=== PATIENT | female | born 1960 | race Two or more races ===

== ENCOUNTER 2025-04-13 11:55 | Inpatient (IN) | payer OTHER ==
[~2025-04-13] VITALS: Ht 167.6 cm; Wt 56.7 kg
[~2025-04-13 11:55] MED LIST: FIORICET 50-301 EACH; PREVACID15 MG; TAGAMET800 MG; TUSSI PRES-B L120 M1 PO; VASOTEC10 MG; ZANTAC300 MG
[2025-04-13] MEDS ORDERED: LOSARTAN POTAS100 MG PO (12:02)
[2025-04-13] MEDS ORDERED: NORVASC2.5 M1 PO (12:03)
--- NOTE | 2025-04-13 12:03 | NUR ---
PTE ALERTA Y ORIENTADA X3 REFIERE VENIR POR ABCESO QUE ESTA COMENZANDO A DESARROLLARSE EN THORNTON NARIS POR EL ORIFICIO PAOLA. SE OBSERVA LABIO SUPERIOR INFLAMADO.
[2025-04-13 13:44] LABS: BASO % 0.2 % (0.1-1.2); EOS # 0.01 (0.04-0.54); EOS % 0.1 % (0.7-7.0); LYMPH # 1.21 (1.18-3.74); LYMPH % 12.6 % (19.3-53.1); MEAN PLATELET VOLUME 9.20 fl (9.4-12.4); MONO # 0.74 (0.24-0.82); MONO % 7.7 % (4.7-12.5); NEUT # 7.56 (1.56-6.13); NEUT % 79.1 % (34.0-71.1); RED CELL DISTRIBUTION WIDTH 19.9 % (11.6-14.4)
[2025-04-13] MEDS ORDERED: CAPTOPRIL 25 MG TABLET PO ONE (13:45)
--- NOTE | 2025-04-13 13:48 | NUR ---
SE EDUCA PACIENTE SOBRE EL TX MEDICO Y ESTA REFIERE ENTENDER. SE FREDA MUESTRAS DE LABORATORIOS. SE QUINTON BP MANUAL Y SE DOCUMENTA DR. LUNA DA ORDEN VERBAL PARA ADMINISTRA 25 MG DE CAPTOPRIL.
[2025-04-13 14:10] LABS: ALT/SGPT 247.0 U/L (12-78); AST/SGOT 370.0 U/L (15-37); BILIRUBIN TOTAL 0.16 mg/dL (0.3-1.2); BUN CREA RATIO 22.0 (7.0-25.0); CREATININE SERUM 0.58 mg/dL (0.55-1.02); GFR 104.01; GLOBULINA 4.9 G/DL (2.4-3.5); GLUCOSE FASTING 103.0 mg/dL (65-100); OSMOLALITY SERUM 274.0 MOSM/KG (275-295)
[2025-04-13] MEDS ORDERED: LABETALOL HCL 20MG/4ML SYRINGE IV ONE ×2 (15:45→22:45)
[2025-04-13] MEDS ORDERED: KETOROLAC TROMETHAMINE 30 MG VIAL IV ONE (16:00)
[2025-04-13] MEDS ORDERED: VANCOMYCIN HCL 1,000 MG VIAL IV ONE (16:00)
[2025-04-13] MEDS ORDERED: PANTOPRAZOLE SODIUM 40 MG/VIAL VIAL IV SCH (18:24)
[2025-04-13] MEDS ORDERED: AMLODIPINE BESYLATE 5 MG TABLET PO SCH (18:25)
[2025-04-13] MEDS ORDERED: CEFTRIAXONE SODIUM 2,000 MG in 0.9 % SODIUM CHLORIDE 100 ML IV SCH (18:26)
[2025-04-13] MEDS ORDERED: ACETAMINOPHEN 500 MG GEL..CAP PO PRN (18:30)
[2025-04-13] MEDS ORDERED: ONDANSETRON HCL 4 MG in 0.9 % SODIUM CHLORIDE 50 ML IV PRN (18:30)
[2025-04-13] MEDS ORDERED: 0.9 % SODIUM CHLORIDE 1,000 ML IV SCH (18:30)
[2025-04-13 21:17] LABS: INR 0.99
[2025-04-13 21:51] LABS: URINE APPEARANCE Clear; URINE BILIRRUBIN Negative (NEGATIVE); URINE BLOOD Trace; URINE COLOR Yellow; URINE GLUCOSE Negative (NEGATIVE); URINE KETONE Trace (NEGATIVE); URINE LEUKOCYTE Negative; URINE NITRATE Negative; URINE PROTEIN 30 (NEGATIVE); URINE UROBILINOGEN 0.2 E.U./dl
[2025-04-13 21:55] LABS: URINE BACTERIA 4.7 uL (0.0-1933); URINE EPITHELIAL CELLS 5.3 uL (0.0-38.8); URINE RBC 38.1 uL (0.0-20.8); URINE WBC 15.3 uL (0.0-23.2)
[2025-04-13 21:58] LABS: URINE CAST 0.87 uL (0.0-1.40)
[2025-04-13 22:28] VITALS: BP 210/90
[2025-04-14] VITALS (8 sets, daily range): BP systolic 177–200; BP diastolic 88–94; O2SAT 96–100
[2025-04-14] MEDS ORDERED: LOSARTAN POTASSIUM 100 MG TABLET PO SCH (09:00)
[2025-04-14] MEDS ORDERED: IRON FUM,PS/FOLIC/BCOMP,C NO.9 1 CAP CAPSULE PO SCH (09:00)
[2025-04-14 12:31] LABS: BASO % 0.2 % (0.1-1.2); EOS # 0.03 (0.04-0.54); EOS % 0.2 % (0.7-7.0); LYMPH # 1.18 (1.18-3.74); LYMPH % 9.7 % (19.3-53.1); MEAN PLATELET VOLUME 9.40 fl (9.4-12.4); MONO # 1.04 (0.24-0.82); MONO % 8.5 % (4.7-12.5); NEUT # 9.86 (1.56-6.13); NEUT % 81.1 % (34.0-71.1); RED CELL DISTRIBUTION WIDTH 23.4 % (11.6-14.4)
[2025-04-14] MEDS ORDERED: MUPIROCIN 15 GM OINT..GM TUBE NASAL SCH (17:00)
[2025-04-14] MEDS ORDERED: LACTOBACILLUS ACIDOPHILUS 1 CAP CAP PO SCH (17:00)
[2025-04-14 19:52] LABS: BUN CREA RATIO 13.0 (7.0-25.0); CREATININE SERUM 0.53 mg/dL (0.55-1.02); GFR 115.41; GLUCOSE FASTING 112.0 mg/dL (65-100); OSMOLALITY SERUM 276.0 MOSM/KG (275-295)
[2025-04-14] MEDS ORDERED: VANCOMYCIN HCL 1,000 MG VIAL IV SCH (21:00)
[2025-04-15] VITALS (9 sets, daily range): BP systolic 148–178; BP diastolic 70–79; O2SAT 96–99
[2025-04-15] MEDS ORDERED: CHLORHEXIDINE GLUCONATE 120 ML BOTTLE TOP SCH (09:00)
[2025-04-15] MEDS ORDERED: PANTOPRAZOLE SODIUM 40 MG TABLET.DR PO SCH ×2 (09:00→21:00)
[2025-04-15] MEDS ORDERED: LINEZOLID IN DEXTROSE 5% 300 ML IV SCH (17:00)
[2025-04-16] VITALS (10 sets, daily range): BP systolic 111–195; BP diastolic 66–87; O2SAT 90–99
[2025-04-16 05:16] LABS: BASO % 0.2 % (0.1-1.2); EOS # 0.11 (0.04-0.54); EOS % 1.0 % (0.7-7.0); LYMPH # 2.88 (1.18-3.74); LYMPH % 25.1 % (19.3-53.1); MEAN PLATELET VOLUME 9.70 fl (9.4-12.4); MONO # 1.23 (0.24-0.82); MONO % 10.7 % (4.7-12.5); NEUT # 7.20 (1.56-6.13); NEUT % 62.7 % (34.0-71.1); RED CELL DISTRIBUTION WIDTH 23.2 % (11.6-14.4)
[2025-04-16 05:23] LABS: ERYTHROCYTE SEDIMENTATION RATE 88 mm/hr (0-30)
[2025-04-16 05:30] LABS: ALT/SGPT 86.0 U/L (12-78); AST/SGOT 31.0 U/L (15-37); BILIRUBIN TOTAL 0.26 mg/dL (0.3-1.2); BUN CREA RATIO 6.0 (7.0-25.0); CREATININE SERUM 0.48 mg/dL (0.55-1.02); GFR 129.4; GLOBULINA 4.2 G/DL (2.4-3.5); GLUCOSE FASTING 92.0 mg/dL (65-100); OSMOLALITY SERUM 276.0 MOSM/KG (275-295)
[2025-04-16] MEDS ORDERED: CANDESARTAN CILEXETIL 32 MG TABLET PO SCH (09:00)
[2025-04-16] MEDS ORDERED: SPIRONOLACTONE 25 MG TABLET PO SCH (09:00)
[2025-04-16] MEDS ORDERED: AMLODIPINE BESYLATE 5 MG TABLET PO SCH (17:00)
[2025-04-16] MEDS ORDERED: DOXAZOSIN MESYLATE 2 MG TABLET PO SCH (21:00)
[2025-04-16] MEDS ORDERED: NIFEDIPINE 90 MG TAB.SA.OSM PO SCH (21:00)
[2025-04-17 02:14] VITALS: BP 140/72; O2SAT 96
[2025-04-17 06:12] VITALS: O2SAT 98
[2025-04-17 06:21] LABS: BASO % 0.3 % (0.1-1.2); EOS # 0.16 (0.04-0.54); EOS % 2.2 % (0.7-7.0); LYMPH # 2.40 (1.18-3.74); LYMPH % 33.2 % (19.3-53.1); MEAN PLATELET VOLUME 10.10 fl (9.4-12.4); MONO # 0.78 (0.24-0.82); MONO % 10.8 % (4.7-12.5); NEUT # 3.85 (1.56-6.13); NEUT % 53.4 % (34.0-71.1); RED CELL DISTRIBUTION WIDTH 23.7 % (11.6-14.4)
[2025-04-17 09:35] VITALS: O2SAT 97
[2025-04-17 09:51] VITALS: BP 188/87; O2SAT 98
[2025-04-17 15:10] LABS: ob NEGATIVE (NEGATIVE)
[2025-04-17 17:10] VITALS: O2SAT 99
[2025-04-17 20:29] VITALS: O2SAT 97
[2025-04-18] VITALS (9 sets, daily range): BP systolic 160–180; BP diastolic 76–85; O2SAT 94–99
[2025-04-18 11:08] LABS: hav igm Negative (Negative); hep b c Negative (Negative); hep b s ag Negative (Negative)
[2025-04-18] MEDS ORDERED: DOXAZOSIN MESYLATE 2 MG TABLET PO SCH (17:00)
[2025-04-18] MEDS ORDERED: CLONAZEPAM 0.5 MG TABLET PO SCH (21:00)
[2025-04-19] VITALS (9 sets, daily range): BP systolic 160–176; BP diastolic 84–89; O2SAT 94–99
[2025-04-20] VITALS (9 sets, daily range): BP systolic 161–188; BP diastolic 80–83; O2SAT 95–98
[2025-04-20] MEDS ORDERED: MIDAZOLAM HCL 2 MG/2 ML VIAL IV STA (11:14)
[2025-04-20 11:38] LABS: FOLIC ACID 16.5 ng/ml (4.78-20)
[2025-04-20 15:12] LABS: ANTI MITOCHONDRIAL ANTIBODIES < 20.0 Units (0.0-20.0); SMOOTH MUSCLE ANTIBODY 8 Units (0-19)
[2025-04-20] MEDS ORDERED: CLONAZEPAM 0.5 MG TABLET PO SCH (17:00)
[2025-04-20] MEDS ORDERED: CLONAZEPAM 1 MG TABLET PO SCH (21:00)
[2025-04-21] VITALS (9 sets, daily range): BP systolic 155–178; BP diastolic 75–86; O2SAT 95–98
[2025-04-21] MEDS ORDERED: MUPIROCIN 22 GM OINT..GM TUBE NASAL SCH (09:00)
[2025-04-21] MEDS ORDERED: CLONAZEPAM0.5 MG PO (14:22)
[2025-04-21] MEDS ORDERED: HYDRALAZINE HCL50 MG PO (14:22)
[2025-04-21] MEDS ORDERED: DOXAZOSIN MESYLA2 MG PO (14:22)
[2025-04-21] MEDS ORDERED: PEPCID40 MG PO (14:22)
[2025-04-21] MEDS ORDERED: INTEGRA PLUS C1 EACH PO (14:22)
[2025-04-21] MEDS ORDERED: SPIRONOLACTONE25 MG PO (14:22)
[2025-04-21] MEDS ORDERED: ATACAND32 MG PO (14:22)
[2025-04-21] MEDS ORDERED: PANTOPRAZOLE SO40 MG PO (14:22)
[2025-04-21] MEDS ORDERED: CLONAZEPAM1 MG PO (14:22)
[2025-04-21] MEDS ORDERED: PROCARDIA XL90 MG PO (14:22)
[2025-04-23 21:07] LABS: SMOOTH MUSCLE ANTIBODY 8 Units (0-19)
== END 2025-04-21 18:40 | disposition home or self-care (01) | DRG 812 ==
LOC: ER 12:33 → MEDI 22:41 → MEDJ 04-16 11:43
PROVIDERS: General Practice; Internal Medicine Gastroenterology; Internal Medicine Infectious Disease; Preventive Medicine Public Health & General Preventive Medicine; ADMIT Internal Medicine; ATTEND Internal Medicine
PROC: BW40ZZZ Ultrasonography of Abdomen (ICD-10-PCS; principal; 2025-04-13)
PROC: BW28ZZZ Computerized Tomography (CT Scan) of Head (ICD-10-PCS; 2025-04-13)
PROC: B246ZZZ Ultrasonography of Right and Left Heart (ICD-10-PCS; 2025-04-13)
PROC: 4A12X4Z Monitoring of Cardiac Electrical Activity, External Approach (ICD-10-PCS; 2025-04-14)
PROC: 30233N1 Transfusion of Nonautologous Red Blood Cells into Peripheral Vein, Percutaneous Approach (ICD-10-PCS; 2025-04-14)
PROC: 8E0ZXY6 Isolation (ICD-10-PCS; 2025-04-16)
PROC: 0DB98ZX Excision of Duodenum, Via Natural or Artificial Opening Endoscopic, Diagnostic (ICD-10-PCS; 2025-04-20)
PROC: 0DB78ZX Excision of Stomach, Pylorus, Via Natural or Artificial Opening Endoscopic, Diagnostic (ICD-10-PCS; 2025-04-20)
DX: D64.89 Other specified anemias (principal); L03.211 Cellulitis of face; I16.1 Hypertensive emergency; J34.0 Abscess, furuncle and carbuncle of nose; B95.61 Methicillin susceptible Staphylococcus aureus infection as the cause of diseases classified elsewhere; L08.89 Other specified local infections of the skin and subcutaneous tissue; K21.9 Gastro-esophageal reflux disease without esophagitis; I49.8 Other specified cardiac arrhythmias; K44.9 Diaphragmatic hernia without obstruction or gangrene; K31.7 Polyp of stomach and duodenum; R74.01 Elevation of levels of liver transaminase levels; F41.9 Anxiety disorder, unspecified; F51.05 Insomnia due to other mental disorder; I10 Essential (primary) hypertension